=== PATIENT | female | born 1985 | race African-American/Black ===

== ENCOUNTER 2016-09-17 18:30 | Emergency (ER) | payer BC, MEDICAID ==
[2010-09-15 15:49] VITALS: BMI 24.4
[~2016-09-17 18:30] MED LIST: AMOXICILLIN500 M1 PO; TYLENOL W/CODEI1 TAB PO
[2016-09-17 19:41] LABS: BASOPHILS 0.4 % (0.0-2.0); EOSINOPHILS 1.2 % (0-7); HEMATOCRIT 39.8 % (36.0-48.0); LYMPHOCYTES 35.3 % (15-50); MCH 29.8 pg (26.0-34.0); MCHC 32.7 g/dL (31.0-37.0); MCV 91.3 fL (80.0-100.0); MONOCYTES 6.9 % (2-11); NEUTROPHILS 56.2 % (40-80); PLATELET COUNT 193 10x3/uL (130-400); RBC 4.36 10x6/uL (4.00-5.40); RDW 13.8 % (11.5-14.5); WBC 4.9 10x3/uL (4.8-10.8)
[2016-09-17 20:08] LABS: ALBUMIN 3.9 g/dL (3.4-5.0); ALKALINE PHOSPHATASE 96 U/L (46-116); ALT (SGPT) 23 U/L (10-68); BILIRUBIN - TOTAL 0.31 mg/dL (0.2-1.3); CALC OSMOLALITY 277 mosm/kg (275-300); CALCIUM 8.9 mg/dL (8.5-10.1); CARBON DIOXIDE 30.4 mmol/L (21.0-32.0); CHLORIDE - SERUM 103 mmol/L (98-107); CREATININE - SERUM 0.7 mg/dL (0.6-1.3); GLUCOSE 95 mg/dL (74-106); POTASSIUM - SERUM 3.5 mmol/L (3.5-5.1); PROTEIN - SERUM 7.2 g/dL (6.4-8.2); SODIUM 140 mmol/L (136-145); UREA NITROGEN 10 mg/dL (7-18); eGFR NON AFRICAN AMERICAN > 90 mL/min (90-120)
[2016-09-17 20:10] LABS: CREATINE KINASE 116 UL (21-215)
[2016-09-17 20:11] LABS: TROPONIN-I < 0.010 ng/mL (0.000-0.060)
== END 2016-09-17 22:00 | disposition home or self-care (01) ==
LOC: D.ER 18:30
PROVIDERS: Emergency Medicine
DX: T14.8 Other injury of unspecified body region (principal); X58.XXXA Exposure to other specified factors, initial encounter; Y93.89 Activity, other specified; Y92.019 Unspecified place in single-family (private) house as the place of occurrence of the external cause

== ENCOUNTER 2017-05-20 18:46 | Emergency (ER) | payer OTHER ==
[2010-09-15 15:49] VITALS: BMI 24.4
== END 2017-05-20 21:24 | disposition home or self-care (01) ==
LOC: D.ER 18:46
DX: S16.1XXA Strain of muscle, fascia and tendon at neck level, initial encounter (principal); V43.52XA Car driver injured in collision with other type car in traffic accident, initial encounter; Y93.89 Activity, other specified; Y92.410 Unspecified street and highway as the place of occurrence of the external cause; F17.200 Nicotine dependence, unspecified, uncomplicated

== ENCOUNTER 2017-05-24 14:04 | Emergency (ER) | payer OTHER ==
[2010-09-15 15:49] VITALS: BMI 24.4
== END 2017-05-24 16:22 | disposition home or self-care (01) ==
LOC: D.ER 14:04
DX: S16.1XXA Strain of muscle, fascia and tendon at neck level, initial encounter (principal); V89.2XXA Person injured in unspecified motor-vehicle accident, traffic, initial encounter; Y93.89 Activity, other specified; Y92.410 Unspecified street and highway as the place of occurrence of the external cause; R51 Headache

== ENCOUNTER 2017-11-08 11:05 | Emergency (ER) | payer OTHER ==
[2010-09-15 15:49] VITALS: BMI 24.4
[2017-11-08 11:45] LABS: APPEARANCE CLEAR (CLEAR); COLOR YELLOW (YELLOW)
[2017-11-08 11:46] LABS: BILIRUBIN NEGATIVE (NEGATIVE); GLUCOSE NEGATIVE (NEGATIVE); KETONE NEGATIVE (NEGATIVE); NITRITE NEGATIVE (NEGATIVE); PROTEIN NEGATIVE (NEGATIVE); UROBILINOGEN NORMAL (NORMAL)
[2017-11-08 11:48] LABS: HCG URINE NEGATIVE (NEGATIVE)
== END 2017-11-08 13:00 | disposition home or self-care (01) ==
LOC: D.ER 11:05
PROVIDERS: Family Medicine
DX: S16.1XXA Strain of muscle, fascia and tendon at neck level, initial encounter (principal); V43.52XA Car driver injured in collision with other type car in traffic accident, initial encounter; Y93.89 Activity, other specified; Y92.410 Unspecified street and highway as the place of occurrence of the external cause; S29.012A Strain of muscle and tendon of back wall of thorax, initial encounter

== ENCOUNTER 2017-11-26 23:42 | Emergency (ER) | payer OTHER ==
[2010-09-15 15:49] VITALS: BMI 24.4
[2017-11-27 00:37] LABS: BASOPHILS 0.3 % (0-2); EOSINOPHILS 0.7 % (0-7); HEMATOCRIT 42.3 % (36.0-48.0); HEMOGLOBIN 13.9 g/dL (12-16); IMMATURE GRANULOCYTES 0.2 % (0-5); LYMPHOCYTES 25.9 % (15-50); MCH 29.8 pg (26.0-34.0); MCHC 32.9 g/dL (31.0-37.0); MCV 90.6 fL (80.0-100.0); MEAN PLATELET VOLUME 10.5 fL (7.4-10.4); MONOCYTES 8.7 % (2-11); NEUTROPHILS 64.2 % (40-80); PLATELET COUNT 212 10x3/uL (130-400); RBC 4.67 10x6/uL (4.00-5.40); RDW 13.5 % (11.5-14.5); WBC 6.1 10x3/uL (4.8-10.8)
[2017-11-27 00:40] LABS: ALKALINE PHOSPHATASE 65 U/L (46-116); ALT (SGPT) 17 U/L (10-68); BILIRUBIN - TOTAL 0.74 mg/dL (0.2-1.3); CALC OSMOLALITY 271 mosm/kg (275-300); CALCIUM 8.7 mg/dL (8.5-10.1); CARBON DIOXIDE 27.2 mmol/L (21.0-32.0); CHLORIDE - SERUM 98 mmol/L (98-107); CREATININE - SERUM 0.8 mg/dL (0.6-1.3); GLUCOSE 87 mg/dL (74-106); POTASSIUM - SERUM 3.5 mmol/L (3.5-5.1); PROTEIN - SERUM 8.2 g/dL (6.4-8.2); SODIUM 137 mmol/L (136-145); UREA NITROGEN 9 mg/dL (7-18); eGFR NON AFRICAN AMERICAN 87 mL/min (90-120)
[2017-11-27 00:42] LABS: HCG SERUM POSITIVE (NEGATIVE)
[2017-11-27 01:04] LABS: HCG - QUANTITATIVE (MATERNAL) 40449 mIU/mL
== END 2017-11-27 02:19 | disposition home or self-care (01) ==
LOC: D.ER 23:42
PROVIDERS: Emergency Medicine
DX: O20.9 Hemorrhage in early pregnancy, unspecified (principal); Z3A.01 Less than 8 weeks gestation of pregnancy

== ENCOUNTER → 2018-02-23 10:40 | Outpatient (CLI) | payer OTHER ==
[2010-09-15 15:49] VITALS: BMI 24.4
== END | disposition home or self-care (01) ==
LOC: D.LDO 10:40
DX: O26.899 Other specified pregnancy related conditions, unspecified trimester (principal); Z3A.00 Weeks of gestation of pregnancy not specified

== ENCOUNTER → 2018-03-17 20:48 | Outpatient (CLI) | payer OTHER ==
[2010-09-15 15:49] VITALS: BMI 24.4
== END | disposition home or self-care (01) ==
LOC: D.LDO 20:48
DX: O36.8120 Decreased fetal movements, second trimester, not applicable or unspecified (principal); Z3A.21 21 weeks gestation of pregnancy

== ENCOUNTER → 2018-04-17 11:33 | Outpatient (CLI) | payer OTHER ==
[2010-09-15 15:49] VITALS: BMI 24.4
[2018-04-17 12:12] LABS: APPEARANCE CLEAR (CLEAR); BILIRUBIN NEGATIVE (NEGATIVE); COLOR STRAW (YELLOW); GLUCOSE NEGATIVE (NEGATIVE); KETONE NEGATIVE (NEGATIVE); NITRITE NEGATIVE (NEGATIVE); PROTEIN NEGATIVE (NEGATIVE); UROBILINOGEN NORMAL (NORMAL)
== END | disposition home or self-care (01) ==
LOC: D.LDO 11:33
PROVIDERS: Obstetrics & Gynecology
DX: O26.899 Other specified pregnancy related conditions, unspecified trimester (principal); Z3A.00 Weeks of gestation of pregnancy not specified

== ENCOUNTER → 2018-04-29 11:17 | Outpatient (CLI) | payer OTHER ==
[2010-09-15 15:49] VITALS: BMI 24.4
[2018-04-29 12:00] LABS: APPEARANCE CLOUDY (CLEAR); BILIRUBIN NEGATIVE (NEGATIVE); COLOR YELLOW (YELLOW); GLUCOSE NEGATIVE (NEGATIVE); KETONE NEGATIVE (NEGATIVE); NITRITE NEGATIVE (NEGATIVE); PROTEIN NEGATIVE (NEGATIVE); SPECIFIC GRAVITY 1.015 (1.005-1.020)
[2018-04-29 12:01] LABS: BACTERIA MODERATE /hpf (NONE SEEN); EPITHELIAL CELLS 0-5 /hpf (0-5); MUCUS <1+ /lpf (NONE SEEN); WHITE CELLS - URINE 25-50 /hpf (0-5)
== END | disposition home or self-care (01) ==
LOC: D.LABREF 11:17 → D.LDO 11:17
PROVIDERS: Obstetrics & Gynecology
DX: O26.892 Other specified pregnancy related conditions, second trimester (principal); Z3A.27 27 weeks gestation of pregnancy; R30.0 Dysuria

== ENCOUNTER 2018-05-16 23:09 | Emergency (ER) | payer OTHER ==
[~2018-05-16] VITALS: Ht 167.6 cm; Wt 86.2 kg
[2018-05-16 23:12] VITALS: Ht 167.6 cm; Wt 86.2 kg
[2018-05-17 01:02] VITALS: BP 123/79
== END 2018-05-17 01:03 | disposition home or self-care (01) ==
LOC: D.ER 23:09
DX: S61.011A Laceration without foreign body of right thumb without damage to nail, initial encounter (principal); S61.210A Laceration without foreign body of right index finger without damage to nail, initial encounter; W25.XXXA Contact with sharp glass, initial encounter; Y93.89 Activity, other specified; Y92.89 Other specified places as the place of occurrence of the external cause; O26.893 Other specified pregnancy related conditions, third trimester; Z3A.32 32 weeks gestation of pregnancy

== ENCOUNTER → 2018-06-15 22:10 | Outpatient (CLI) | payer OTHER ==
[2018-05-16 23:12] VITALS: BMI 24.4
[2018-06-15 22:59] LABS: APPEARANCE CLEAR (CLEAR); BILIRUBIN NEGATIVE (NEGATIVE); COLOR YELLOW (YELLOW); GLUCOSE NEGATIVE (NEGATIVE); KETONE NEGATIVE (NEGATIVE); NITRITE NEGATIVE (NEGATIVE); PROTEIN TRACE mg/dL (NEGATIVE); SPECIFIC GRAVITY 1.015 (1.005-1.020)
== END | disposition home or self-care (01) ==
LOC: D.LDO 22:10
PROVIDERS: Obstetrics & Gynecology
DX: O26.893 Other specified pregnancy related conditions, third trimester (principal); Z3A.34 34 weeks gestation of pregnancy

== ENCOUNTER 2018-07-07 23:33 | Outpatient (CLI) | payer MEDICAID ==
[2018-05-16 23:12] VITALS: BMI 24.4
[2018-07-08 00:38] LABS: APPEARANCE CLEAR (CLEAR); BILIRUBIN NEGATIVE (NEGATIVE); COLOR YELLOW (YELLOW); GLUCOSE NEGATIVE (NEGATIVE); KETONE NEGATIVE (NEGATIVE); NITRITE NEGATIVE (NEGATIVE); PROTEIN 1+ mg/dL (NEGATIVE); SPECIFIC GRAVITY 1.015 (1.005-1.020)
[2018-07-08 00:40] LABS: BACTERIA MODERATE /hpf (NONE SEEN); EPITHELIAL CELLS 0-5 /hpf (0-5); RED CELLS - URINE NONE SEEN /hpf (0-5); WHITE CELLS - URINE 0-5 /hpf (0-5)
[2018-07-08 01:47] LABS: BASOPHILS 0.3 % (0-2); EOSINOPHILS 5.3 % (0-7); HEMATOCRIT 35.1 % (36.0-48.0); HEMOGLOBIN 11.2 g/dL (12-16); IMMATURE GRANULOCYTES 0.3 % (0-5); LYMPHOCYTES 29.1 % (15-50); MCH 26.4 pg (26.0-34.0); MCHC 31.9 g/dL (31.0-37.0); MCV 82.8 fL (80.0-100.0); MEAN PLATELET VOLUME 10.6 fL (7.4-10.4); MONOCYTES 10.1 % (2-11); NEUTROPHILS 54.9 % (40-80); RBC 4.24 10x6/uL (4.00-5.40); RDW 14.5 % (11.5-14.5); WBC 3.8 10x3/uL (4.8-10.8)
[2018-07-08 01:50] LABS: PLATELET COUNT 144 10x3/uL (130-400)
[2018-07-08 01:57] LABS: INR 1.01 (0.85-1.17)
[2018-07-08 02:04] LABS: ALBUMIN 2.4 g/dL (3.4-5.0); ALKALINE PHOSPHATASE 177 U/L (46-116); ALT (SGPT) 17 U/L (10-68); BILIRUBIN - DIRECT 0.16 mg/dL (0.00-0.30); BILIRUBIN - INDIRECT 0.59 mg/dL (0.00-1.00); BILIRUBIN - TOTAL 0.75 mg/dL (0.2-1.3); CALC OSMOLALITY 273 mosm/kg (275-300); CALCIUM 7.9 mg/dL (8.5-10.1); CARBON DIOXIDE 25.7 mmol/L (21.0-32.0); CHLORIDE - SERUM 105 mmol/L (98-107); CREATININE - SERUM 0.5 mg/dL (0.6-1.3); GLUCOSE 89 mg/dL (74-106); POTASSIUM - SERUM 3.2 mmol/L (3.5-5.1); PROTEIN - SERUM 6.2 g/dL (6.4-8.2); SODIUM 138 mmol/L (136-145); UREA NITROGEN 9 mg/dL (7-18); URIC ACID 2.8 mg/dL (2.6-7.2); eGFR NON AFRICAN AMERICAN > 90 mL/min (90-120)
[2018-07-13 03:23] VITALS: BMI 32.0
== END 2018-07-08 06:15 | disposition home or self-care (01) ==
LOC: D.LD 23:33 → D.LDO 23:33
PROVIDERS: Obstetrics & Gynecology
DX: O26.893 Other specified pregnancy related conditions, third trimester (principal); Z3A.38 38 weeks gestation of pregnancy

== ENCOUNTER → 2018-07-08 14:31 | Outpatient (CLI) | payer MEDICAID ==
[2018-05-16 23:12] VITALS: BMI 24.4
[~2018-07-08 14:31] MED LIST changes: +IBUPROFEN600 MG PO; +NORCO 10-325 TA1 TAB PO
[2018-07-08 15:25] LABS: BASOPHILS 0.3 % (0-2); EOSINOPHILS 4.1 % (0-7); HEMATOCRIT 32.9 % (36.0-48.0); HEMOGLOBIN 10.5 g/dL (12-16); IMMATURE GRANULOCYTES 0.3 % (0-5); LYMPHOCYTES 32.7 % (15-50); MCH 26.5 pg (26.0-34.0); MCHC 31.9 g/dL (31.0-37.0); MCV 83.1 fL (80.0-100.0); MEAN PLATELET VOLUME 10.4 fL (7.4-10.4); MONOCYTES 12.6 % (2-11); PLATELET COUNT 150 10x3/uL (130-400); RBC 3.96 10x6/uL (4.00-5.40); RDW 14.6 % (11.5-14.5); WBC 3.9 10x3/uL (4.8-10.8)
[2018-07-08 15:40] LABS: APPEARANCE CLEAR (CLEAR); BILIRUBIN NEGATIVE (NEGATIVE); COLOR YELLOW (YELLOW); GLUCOSE NEGATIVE (NEGATIVE); KETONE NEGATIVE (NEGATIVE); NITRITE NEGATIVE (NEGATIVE); PROTEIN NEGATIVE (NEGATIVE); SPECIFIC GRAVITY 1.005 (1.005-1.020); UROBILINOGEN NORMAL (NORMAL)
[2018-07-08 15:42] LABS: ALBUMIN 2.3 g/dL (3.4-5.0); ALKALINE PHOSPHATASE 175 U/L (46-116); ALT (SGPT) 17 U/L (10-68); BILIRUBIN - TOTAL 0.71 mg/dL (0.2-1.3); CALC OSMOLALITY 269 mosm/kg (275-300); CALCIUM 7.4 mg/dL (8.5-10.1); CARBON DIOXIDE 21.1 mmol/L (21.0-32.0); CHLORIDE - SERUM 105 mmol/L (98-107); CREATININE - SERUM 0.6 mg/dL (0.6-1.3); GLUCOSE 81 mg/dL (74-106); POTASSIUM - SERUM 3.2 mmol/L (3.5-5.1); PROTEIN - SERUM 5.8 g/dL (6.4-8.2); SODIUM 137 mmol/L (136-145); eGFR NON AFRICAN AMERICAN > 90 mL/min (90-120)
[2018-07-08 15:42] LABS: BACTERIA MODERATE /hpf (NONE SEEN); RED CELLS - URINE 0-5 /hpf (0-5); WHITE CELLS - URINE 0-5 /hpf (0-5)
[2018-07-08 15:43] LABS: BILIRUBIN - INDIRECT 0.51 mg/dL (0.00-1.00); UREA NITROGEN 5 mg/dL (7-18); URIC ACID 2.9 mg/dL (2.6-7.2)
[2018-07-13 03:23] VITALS: BMI 32.0
== END | disposition home or self-care (01) ==
LOC: D.LDO 14:31
PROVIDERS: Obstetrics & Gynecology
DX: O26.899 Other specified pregnancy related conditions, unspecified trimester (principal); Z3A.00 Weeks of gestation of pregnancy not specified

== ENCOUNTER → 2018-07-10 12:01 | Outpatient (CLI) | payer MEDICAID ==
[2018-05-16 23:12] VITALS: BMI 24.4
[2018-07-13 03:23] VITALS: BMI 32.0
== END | disposition home or self-care (01) ==
LOC: D.LDO 12:01
DX: O16.3 Unspecified maternal hypertension, third trimester (principal); Z3A.38 38 weeks gestation of pregnancy

== ENCOUNTER 2018-07-12 23:17 | Inpatient (IN) | payer MEDICAID ==
[~2018-07-12] VITALS: Ht 167.6 cm; Wt 90.0 kg
[~2018-07-12 23:17] MED LIST changes: -IBUPROFEN600 MG PO; -NORCO 10-325 TA1 TAB PO
[2018-07-12 23:54] LABS: APPEARANCE CLEAR (CLEAR); BILIRUBIN NEGATIVE (NEGATIVE); COLOR YELLOW (YELLOW); GLUCOSE NEGATIVE (NEGATIVE); KETONE NEGATIVE (NEGATIVE); NITRITE NEGATIVE (NEGATIVE); PROTEIN NEGATIVE (NEGATIVE); UROBILINOGEN NORMAL (NORMAL)
[2018-07-13] VITALS (18 sets, daily range): BP systolic 100–174; BP diastolic 59–100; Ht 167.6 cm; Wt 90.0 kg
[2018-07-13 00:30] LABS: HEMOGLOBIN 10.7 g/dL (12-16); MCH 26.2 pg (26.0-34.0); MCHC 32.4 g/dL (31.0-37.0); MCV 80.9 fL (80.0-100.0); MEAN PLATELET VOLUME 10.9 fL (7.4-10.4); RBC 4.08 10x6/uL (4.00-5.40); RDW 14.5 % (11.5-14.5); WBC 4.2 10x3/uL (4.8-10.8)
[2018-07-13 10:30] LABS: BASOPHILS 0.1 % (0-2); EOSINOPHILS 1.9 % (0-7); HEMATOCRIT 36.9 % (36.0-48.0); IMMATURE GRANULOCYTES 0.1 % (0-5); LYMPHOCYTES 15.4 % (15-50); MCH 26.8 pg (26.0-34.0); MCHC 32.5 g/dL (31.0-37.0); MCV 82.4 fL (80.0-100.0); MEAN PLATELET VOLUME 10.6 fL (7.4-10.4); MONOCYTES 8.7 % (2-11); NEUTROPHILS 73.8 % (40-80); RBC 4.48 10x6/uL (4.00-5.40); RDW 14.7 % (11.5-14.5)
[2018-07-13 10:35] LABS: PLATELET COUNT 116 10x3/uL (130-400); WBC 7.3 10x3/uL (4.8-10.8)
[2018-07-13 15:25] LABS: BASOPHILS 0.3 % (0-2); EOSINOPHILS 1.6 % (0-7); HEMATOCRIT 36.4 % (36.0-48.0); HEMOGLOBIN 11.8 g/dL (12-16); IMMATURE GRANULOCYTES 0.1 % (0-5); LYMPHOCYTES 15.8 % (15-50); MCH 26.9 pg (26.0-34.0); MCHC 32.4 g/dL (31.0-37.0); MCV 83.1 fL (80.0-100.0); MONOCYTES 7.7 % (2-11); NEUTROPHILS 74.5 % (40-80); PLATELET COUNT 122 10x3/uL (130-400); RBC 4.38 10x6/uL (4.00-5.40); RDW 14.8 % (11.5-14.5)
[2018-07-14 00:23] VITALS: BP 129/88
[2018-07-14 04:46] VITALS: BP 158/89
[2018-07-14 06:12] LABS: RAPID PLASMA REAGIN Non Reactive (Non Reactive)
[2018-07-14 07:14] VITALS: BP 126/84
[2018-07-14 20:40] VITALS: BP 131/82
[2018-07-15 09:34] VITALS: BP 119/81
[2018-07-15 12:38] VITALS: BP 131/89
[2018-07-15] MEDS ORDERED: NORCO 10-325 TA1 TAB PO (14:39)
[2018-07-15] MEDS ORDERED: IBUPROFEN600 MG PO (14:40)
== END 2018-07-15 16:00 | disposition home or self-care (01) | DRG 786 ==
LOC: D.LDO 23:17 → D.LD 23:18 → D.LDO 07-13 00:05 → D.LD 07-13 00:06
PROVIDERS: Obstetrics & Gynecology
PROC: 10D00Z1 Extraction of Products of Conception, Low, Open Approach (ICD-10-PCS; principal; 2018-07-13 01:00)
DX: O76 Abnormality in fetal heart rate and rhythm complicating labor and delivery (principal); O71.1 Rupture of uterus during labor; Z3A.38 38 weeks gestation of pregnancy; Z37.0 Single live birth

== ENCOUNTER → 2018-10-07 14:36 | Outpatient (CLI) | payer MEDICAID ==
[2018-07-13 03:23] VITALS: BMI 32.0
[~2018-10-07 14:36] MED LIST changes: +IBUPROFEN600 MG PO; +NORCO 10-325 TA1 TAB PO
== END | disposition home or self-care (01) ==
LOC: D.MRI 14:36
DX: K46.9 Unspecified abdominal hernia without obstruction or gangrene (principal); R10.2 Pelvic and perineal pain

== ENCOUNTER 2019-01-15 07:00 | Day surgery (SDC) | payer MEDICAID ==
[2019-01-14 10:07] LABS: BASOPHILS 0.2 % (0-2); EOSINOPHILS 1.8 % (0-7); HEMOGLOBIN 14.3 g/dL (12-16); LYMPHOCYTES 22.6 % (15-50); MCH 30.2 pg (26.0-34.0); MCV 88.6 fL (80.0-100.0); MEAN PLATELET VOLUME 10.6 fL (7.4-10.4); MONOCYTES 5.7 % (2-11); NEUTROPHILS 69.7 % (40-80); PLATELET COUNT 213 10x3/uL (130-400); RBC 4.74 10x6/uL (4.00-5.40); RDW 13.2 % (11.5-14.5); WBC 5.1 10x3/uL (4.8-10.8)
[~2019-01-15] VITALS: Ht 167.6 cm; Wt 90.7 kg
[~2019-01-15 07:00] MED LIST changes: +GABAPENTIN100 MG PO; +PROCARDIA10 MG PO
[2019-01-15 07:20] LABS: HCG URINE NEGATIVE (NEGATIVE)
[2019-01-15 07:27] VITALS: BP 102/78; Ht 167.6 cm; Wt 90.7 kg
--- NOTE | 2019-01-15 11:55 | NUR ---
REC'D FROM RR. FAMILY AT BEDSIDE. DROWSY. ICE CHIPS BROUGHT TO PATIENT. DRESSING CDI TO SURGICAL SITES.
--- NOTE | 2019-01-15 12:25 | NUR ---
DROWSY. RESPONDS TO VERBAL STIMULI. CONTINUES TO EAT ICE CHIPS.
--- NOTE | 2019-01-15 12:48 | NUR ---
FL TRAY TAKEN TO PT.
--- NOTE | 2019-01-15 12:51 | NUR ---
CALLED AND MESSAGE LEFT FOR DR NICOLE.
--- NOTE | 2019-01-15 13:30 | NUR ---
TOLERATED FL DIET. IV DC'D WITH CATHETER INTACT. AMBULATED TO BATHROOM AND VOIDED WITHOUT DIFFICULTY.
--- NOTE | 2019-01-15 14:00 | NUR ---
WRITTEN AND VERBAL DISCHARGE INSTRUCTIONS GIVEN TO PT ALONG WITH RX. VERBALIZED UNDERSTANDING.
--- NOTE | 2019-01-15 14:05 | NUR ---
DC'D HOME WITH FAMILY VIA PRIVATE VEHICLE. TAKEN TO VEHICLE VIA WC. STABLE AT TIME OF DC.
== END 2019-01-15 14:05 | disposition home or self-care (01) ==
LOC: D.OPS 07:00
PROVIDERS: ATTEND Obstetrics & Gynecology
DX: R10.2 Pelvic and perineal pain (principal); Z01.812 Encounter for preprocedural laboratory examination

== ENCOUNTER 2019-01-19 20:38 | Emergency (ER) | payer MEDICAID ==
[~2019-01-19] VITALS: Ht 167.6 cm; Wt 93.2 kg
[2019-01-19 20:51] VITALS: Ht 167.6 cm; Wt 93.2 kg
[2019-01-19 23:48] LABS: BASOPHILS 0.4 % (0-2); EOSINOPHILS 2.3 % (0-7); HEMATOCRIT 38.4 % (36.0-48.0); HEMOGLOBIN 12.8 g/dL (12-16); IMMATURE GRANULOCYTES 0.2 % (0-5); LYMPHOCYTES 41.9 % (15-50); MCH 29.6 pg (26.0-34.0); MCHC 33.3 g/dL (31.0-37.0); MCV 88.7 fL (80.0-100.0); MEAN PLATELET VOLUME 10.6 fL (7.4-10.4); MONOCYTES 6.6 % (2-11); NEUTROPHILS 48.6 % (40-80); PLATELET COUNT 204 10x3/uL (130-400); RBC 4.33 10x6/uL (4.00-5.40); RDW 12.9 % (11.5-14.5); WBC 4.8 10x3/uL (4.8-10.8)
[2019-01-19 23:57] LABS: APPEARANCE HAZY (CLEAR); BILIRUBIN NEGATIVE (NEGATIVE); COLOR YELLOW (YELLOW); GLUCOSE NEGATIVE (NEGATIVE); KETONE NEGATIVE (NEGATIVE); NITRITE NEGATIVE (NEGATIVE); PH 7.5 (5.0-6.0); PROTEIN NEGATIVE (NEGATIVE); UROBILINOGEN NORMAL (NORMAL)
[2019-01-20 00:01] LABS: ALBUMIN 3.7 g/dL (3.4-5.0); ALKALINE PHOSPHATASE 86 U/L (46-116); ALT (SGPT) 30 U/L (10-68); BILIRUBIN - TOTAL 0.39 mg/dL (0.2-1.3); CALC OSMOLALITY 281 mosm/kg (275-300); CALCIUM 8.8 mg/dL (8.5-10.1); CARBON DIOXIDE 29.2 mmol/L (21.0-32.0); CHLORIDE - SERUM 104 mmol/L (98-107); CREATININE - SERUM 1.4 mg/dL (0.6-1.3); GLUCOSE 93 mg/dL (74-106); POTASSIUM - SERUM 3.7 mmol/L (3.5-5.1); PROTEIN - SERUM 7.5 g/dL (6.4-8.2); SODIUM 141 mmol/L (136-145); UREA NITROGEN 14 mg/dL (7-18); eGFR NON AFRICAN AMERICAN 46 mL/min (90-120)
[2019-01-20 00:05] LABS: BACTERIA FEW /hpf (NONE SEEN); EPITHELIAL CELLS RARE /hpf (0-5); RED CELLS - URINE 0-5 /hpf (0-5); WHITE CELLS - URINE OCC /hpf (0-5)
[2019-01-20 00:16] LABS: AMYLASE - SERUM 55 U/L (25-115); CKMB 1.4 U/L (0.0-3.6); CREATINE KINASE 112 UL (21-215); LIPASE 157 U/L (73-393); TROPONIN-I < 0.017 ng/mL (0.000-0.060)
[2019-01-20 00:51] VITALS: BP 114/84
== END 2019-01-20 02:15 | disposition home or self-care (01) ==
LOC: D.ER 20:38
PROVIDERS: Family Medicine
DX: R07.9 Chest pain, unspecified (principal)

== ENCOUNTER 2019-01-25 09:20 | Emergency (ER) | payer MEDICAID ==
[2019-01-25 09:23] VITALS: BP 107/71; BMI 33.1
[2019-01-25] MEDS ORDERED: HYDROCODON-ACE1 EAC7 PO (09:28)
[2019-01-25] MEDS ORDERED: CLEOCIN HCL150 MG PO (09:45)
== END 2019-01-25 10:15 | disposition home or self-care (01) ==
LOC: D.ER 09:20
DX: L76.82 Other postprocedural complications of skin and subcutaneous tissue (principal)

== ENCOUNTER 2019-02-22 10:42 | Inpatient (IN) | payer MEDICAID ==
[~2019-02-22] VITALS: Ht 167.6 cm; Wt 81.8 kg
[~2019-02-22 10:42] MED LIST changes: +CLEOCIN HCL150 MG PO; +HYDROCODON-ACE1 EAC7 PO
[2019-03-10 15:01] LABS: BASOPHILS 0.2 % (0-2); EOSINOPHILS 3.6 % (0-7); HEMATOCRIT 41.2 % (36.0-48.0); HEMOGLOBIN 14.1 g/dL (12-16); IMMATURE GRANULOCYTES 0.2 % (0-5); LYMPHOCYTES 39.8 % (15-50); MCHC 34.2 g/dL (31.0-37.0); MCV 87.7 fL (80.0-100.0); MONOCYTES 8.9 % (2-11); NEUTROPHILS 47.3 % (40-80); PLATELET COUNT 220 10x3/uL (130-400); RDW 13.2 % (11.5-14.5)
[2019-03-12] VITALS (10 sets, daily range): BP systolic 90–110; BP diastolic 50–72; Ht 167.6 cm; Wt 81.8 kg
[2019-03-12 06:38] LABS: HCG URINE NEGATIVE (NEGATIVE)
--- NOTE | 2019-03-12 14:59 | NUR ---
PATIENT RECIEVED FROM RECOVERY ROOM POST EXP LAP. DRESSING TO LOWER ABDOMEN CLEAN, DRY AND INTACT. PATIENT AROUSES BY VOICE AND REPORTS PAIN OF 10 WHEN AWAKEND. TORADOL 30 MG IV GIVEN AND OPTOMETRY ASSISTANT DILAUDID GIVEN. EDUCATED PATIENT ON USE OF OPTOMETRY ASSISTANT WITH PATIENT VOICING UNDERSTANDING. CL IN EASY.
--- NOTE | 2019-03-12 17:03 | NUR ---
PATIENT RESTING QUIETLY, TOLERATING PAIN AND CL DIET
--- NOTE | 2019-03-12 19:30 | NUR ---
RECEIVED REPORT, WILL ASSUME CARE OF PT, DENIES ANY NEEDS AT THIS TIME, BED IS LOW, SRX2, CALL LIGHT IN REACH, FAMILY AT BEDSIDE,WILL CONTINUE PLAN OF CARE
--- NOTE | 2019-03-12 23:44 | NUR ---
GAVE PT SOME MILLIE
--- NOTE | 2019-03-13 03:04 | NUR ---
I have reviewed this patient and I concur with the Shift Assessment completed by the Licensed Practical Nurse today this shift.
[2019-03-13 04:21] VITALS: BP 96/58
[2019-03-13 06:42] LABS: BASOPHILS 0.2 % (0-2); EOSINOPHILS 2.5 % (0-7); HEMATOCRIT 34.7 % (36.0-48.0); HEMOGLOBIN 11.2 g/dL (12-16); IMMATURE GRANULOCYTES 0.2 % (0-5); LYMPHOCYTES 25.7 % (15-50); MCH 28.9 pg (26.0-34.0); MCHC 32.3 g/dL (31.0-37.0); MCV 89.4 fL (80.0-100.0); MEAN PLATELET VOLUME 10.9 fL (7.4-10.4); MONOCYTES 8.6 % (2-11); NEUTROPHILS 62.8 % (40-80); PLATELET COUNT 181 10x3/uL (130-400); RBC 3.88 10x6/uL (4.00-5.40); RDW 13.6 % (11.5-14.5); WBC 5.7 10x3/uL (4.8-10.8)
[2019-03-13 07:00] VITALS: BP 110/70
[2019-03-13 07:00] LABS: CALC OSMOLALITY 273 mosm/kg (275-300); CALCIUM 7.8 mg/dL (8.5-10.1); CARBON DIOXIDE 28.2 mmol/L (21.0-32.0); CHLORIDE - SERUM 105 mmol/L (98-107); CREATININE - SERUM 0.6 mg/dL (0.6-1.3); GLUCOSE 105 mg/dL (74-106); POTASSIUM - SERUM 3.9 mmol/L (3.5-5.1); SODIUM 138 mmol/L (136-145); UREA NITROGEN 8 mg/dL (7-18); eGFR NON AFRICAN AMERICAN > 90 mL/min (90-120)
--- NOTE | 2019-03-13 07:10 | NUR ---
REPORT RECEIVED FROM MULTIPLE DRUM SANDER AND PATIENT CARE ASSUMED. PATIENT LAYING IN BED ON BACK WITH EYES CLOSED AND BREATHING EVENLY. FAMILY MEMBER ASLEEP IN BS CHAIR. WILL CONTINUE WITH PLAN OF CARE. SR UP X 2 BED IN LOW POSITION AND CALL LIGHT IN REACH.
--- NOTE | 2019-03-13 08:30 | NUR ---
DR NICOLE IN ROOM. NEW ORDERS RECIEVED.
[2019-03-13 11:00] VITALS: BP 118/68
--- NOTE | 2019-03-13 13:30 | NUR ---
PATIENT IS STABLE AND VSS. PATIENT IS SORE IN ABD BUT STATES SHE FEELS BETTER. PATIENT UP TO SHOWER. APPLIED LOTION TO BODY. COMPLETE LINEN CHANGE. PATIENT TOLERATED WELL AND IS NOW SITTING UP IN BS CHAIR. WILL CONTINUE TO MONITOR.
[2019-03-13 16:00] VITALS: BP 107/64
--- NOTE | 2019-03-13 17:38 | NUR ---
PATIENT RESTING COMFORTABLY. VSS AND PATIENT IS STABLE. WILL CONTINUE TO MONITOR.
--- NOTE | 2019-03-13 19:15 | NUR ---
PT ALERT AND ORIENTED. ABDOMINAL INCISION TO THE LOWER ABDOMEN IN PELVIC FOLD. PATIENT STATES THAT PAIN IS 6/10. HAS DILAUDID EMERGENCY ROOM TECHNICIAN AND VERBALIZES HOW TO USE EFFECTIVELY. RIGHT HAND IV THE IS INFUSING LR @ 125. LEFT HAND THAT IS CURRENTLY SALINE LOCKED. DAUGHTER IN ROOM. SCD'S ON PER ORDER. INCENTIVE SPRIOMETER AT BEDSIDE. HIGHLY ENCOURAGED PATIENT TO USE. EDUCATED ON BENEFITS OF TCDB AND SPLINTING PILLOW TO HELP WITH ABDOMINAL DISCOMFORT. PATIENT VERBALIZES UNDERSTANDING OF TEACHING. CALL LIGHT IN REACH OF PATIENT. EMERGENCY ROOM TECHNICIAN REMOTE IN REACH OF PATIENT. BED IS LOCKED AND LOWERED. SIDE RAILS UP X 2. CPOC.
[2019-03-13 20:00] VITALS: BP 107/64
[2019-03-14] VITALS: BP 100/65
--- NOTE | 2019-03-14 01:28 | NUR ---
I have reviewed this patient and I concur with the Shift Assessment completed by the Licensed Practical Nurse today this shift.
[2019-03-14 04:00] VITALS: BP 97/61
--- NOTE | 2019-03-14 11:50 | NUR ---
PATIENT UP TO SHOWER AND NOW AMBULATING IN MEDEL. PATIENT TOLERATING WELL. NEW OR VARSHA TO DC DILAUDED AIRCRAFT QUALITY CONTROL INSPECTOR. WILL CONTINUE TO MONITOR.
--- NOTE | 2019-03-14 15:25 | NUR ---
PATIENT IS STABLE AND VSS. PATIENT RESTING QUIETLY IN BED WITH SPOUSE IN BS CHAIR. PATIENT DENIES ANY NEEDS OR PAIN. WILL CONTINUE TO MONITOR.
[2019-03-14 15:31] VITALS: BP 98/68
[2019-03-14 19:44] VITALS: BP 118/65
--- NOTE | 2019-03-14 19:50 | NUR ---
PATIENT RECEIVED SITTING UP IN BED. ASSESSMENT & VITAL SIGNS DONE. NO C/O PAIN OR DISTRESS. BED LOW. CALL LIGHT WITHIN REACH. WILL CONTINUE TO MONITOR.
[2019-03-14 23:57] VITALS: BP 110/78
--- NOTE | 2019-03-15 00:36 | NUR ---
PATIENT AWAKE ON PHONE. IV LR CONTINUES AT 125CC/HR. NO C/O PAIN OR DISTRESS AT THIS TIME. CALL LIGHT WITHIN REACH. WILL CONTINUE TO MONITOR.
[2019-03-15 04:21] VITALS: BP 113/79
[2019-03-15 07:55] VITALS: BP 108/72
--- NOTE | 2019-03-15 08:22 | NUR ---
PT RESTING IN BED, SHIFT ASSESSMENT PERFORMED. DENIES ANY NEEDS AT THIS TIME. WILL CONT TO FOLLOW POC
[2019-03-15 11:43] VITALS: BP 106/73
--- NOTE | 2019-03-15 18:02 | NUR ---
ROUNDED AND TOLD NURSE PT WAS OK TO D/C. PIVS TO BILATERAL HANDS D/C WITH CATHETER TIP INTACT.
--- NOTE | 2019-03-15 19:13 | NUR ---
DISCHARGE INSTRUCTIONS REVIEWED WITH PT AND ALL QUESTIONS ANSWERED. ASSISTED PT TO FRONT OF HOSPITAL VIA WHEELCHAIR WHERE SHE LEFT WITH SPOUSE
--- NOTE | 2019-04-07 11:40 | OP ---
PATIENT NAME: FELIPE ZAVALA MEDICAL RECORD: [id number] :83 LOCATION:D.M3 D.1211 ADMISSION DATE:03/12/19 SURGEON: GRACIELA PATRICK MD DATE OF OPERATION: 03/12/2019 PREOPERATIVE DIAGNOSES: 1. Extensive adhesive disease of the pelvis. 2. Levorotation of the uterus due to adhesive disease. 2. Pelvic pain. PROCEDURES: Exploratory laparotomy and lysis of adhesions. SURGEON: Graciela Patrick MD ESTIMATED BLOOD LOSS: Approximately 50 cc. INTRAVENOUS FLUIDS: Per anesthesia record. ANESTHESIA: General endotracheal. SPECIMENS: None. COMPLICATIONS: None apparent. FINDINGS: 1. Extensive adhesive disease involving bladder, uterus, and anterior abdominal wall. 2. Levorotation of the uterus and bilateral adnexa. PROCEDURE IN DETAIL: The patient was taken to the operating room, where general anesthesia was achieved without any difficulty. The patient was then prepped and draped in normal sterile fashion in the dorsal supine position. A Mcelroy catheter had been placed and was draining freely. SCDs were on and functioning appropriately. Following prep and drape, a Pfannenstiel skin incision was made and extended downward to the underlying subcutaneous fat to level of the fascia. The fascia was then excised in the midline and carefully dissected bilaterally, revealing the underlying rectus muscle. Superior and inferior aspects of the fascial incision were then grasped with Haley clamps times 2, tented upward, and sharply dissected from the underlying rectus muscle using the Bautista scissors and the Bovie cautery. The peritoneum was entered at the superior aspect of the incision with Metzenbaum scissors. Under direct visualization, further peritoneal dissection was performed downward, at which plane there was found a portion of the bladder that was densely adherent to the peritoneum and the rectus muscles. Careful dissection was performed downward until the rectus muscle was exposed. The bladder was then carefully dissected away from the peritoneum and right side of the rectus muscle. Several fibrous bands were noted connecting the bladder and the uterus to the abdominal wall. These were examined and carefully excised. Following removal of several of these bands, the bladder, uterus, and adnexa began to similar to normal anatomic position. Several other areas of the anterior uterus were carefully dissected from the peritoneal surface to relieve lines of tension. Good hemostasis was noted from the surgical sites. Interceed was placed across all the surgical areas anteriorly and on the fundus of the uterus to prevent further adhesion formation. Counts were correct times 2 and the fascia was repaired with #0 loop PDS times 1 and the skin was repaired with a running subcutaneous stitch using OPERATIVE REPORT [id number] FELIPE ZAVALA 3-0 Monocryl and Dermabond. The patient tolerated the procedure well. She was transferred to postanesthesia recovery stable without incident. TRANSINT:[id number] Voice Confirmation ID: [id number] DOCUMENT ID: [id number] GRACILEA PATRICK MD at 1140 CC: [id number] DICTATION DATE: 03/21/19 1645 MOLD CLOSER HELPER: 03/21/192011 DIS IN 03/15/19 [facility] [address] [place] [address]
== END 2019-03-15 20:15 | disposition home or self-care (01) | DRG 745 ==
LOC: D.SDCHOLD 03-12 06:09 → D.M3 03-12 06:09 → D.SDCHOLD 03-12 07:30 → D.M3 03-12 12:43
PROVIDERS: ADMIT Obstetrics & Gynecology; ATTEND Obstetrics & Gynecology
PROC: 0TNB0ZZ Release Bladder, Open Approach (ICD-10-PCS; 2019-03-12)
PROC: 0UN90ZZ Release Uterus, Open Approach (ICD-10-PCS; principal; 2019-03-12 07:30)
DX: N73.6 Female pelvic peritoneal adhesions (postinfective) (principal); R10.2 Pelvic and perineal pain; I10 Essential (primary) hypertension; Z87.891 Personal history of nicotine dependence; F41.9 Anxiety disorder, unspecified; N32.89 Other specified disorders of bladder

== ENCOUNTER → 2019-05-04 13:58 | Outpatient (CLI) | payer MEDICAID ==
[2019-03-12 14:51] VITALS: BMI 29.1
== END | disposition home or self-care (01) ==
LOC: D.CT 13:58
PROVIDERS: ATTEND Obstetrics & Gynecology
DX: R10.9 Unspecified abdominal pain (principal)

== ENCOUNTER 2019-07-05 22:05 | Observation (INO) | payer MEDICAID ==
[~2019-07-05] VITALS: Ht 167.6 cm; Wt 44.6 kg
[2019-07-05 23:29] LABS: APPEARANCE CLEAR (CLEAR); BILIRUBIN NEGATIVE (NEGATIVE); COLOR YELLOW (YELLOW); GLUCOSE NEGATIVE (NEGATIVE); HCG URINE NEGATIVE (NEGATIVE); KETONE NEGATIVE (NEGATIVE); NITRITE NEGATIVE (NEGATIVE); PROTEIN TRACE mg/dL (NEGATIVE); SPECIFIC GRAVITY 1.015 (1.005-1.020); UROBILINOGEN NORMAL (NORMAL)
[2019-07-05 23:38] LABS: HEMATOCRIT 37.9 % (36.0-48.0); HEMOGLOBIN 12.7 g/dL (12-16); LYMPHOCYTES 38.7 % (15-50); MCHC 33.5 g/dL (31.0-37.0); MCV 89.4 fL (80.0-100.0); MEAN PLATELET VOLUME 10.1 fL (7.4-10.4); NEUTROPHILS 54.3 % (40-80); PLATELET COUNT 196 10x3/uL (130-400); RBC 4.24 10x6/uL (4.00-5.40); RDW 13.6 % (11.5-14.5); WBC 5.4 10x3/uL (4.8-10.8)
[2019-07-05 23:47] LABS: CALC OSMOLALITY 275 mosm/kg (275-300); CALCIUM 8.7 mg/dL (8.5-10.1); CARBON DIOXIDE 26.5 mmol/L (21.0-32.0); CHLORIDE - SERUM 103 mmol/L (98-107); CREATININE - SERUM 0.8 mg/dL (0.6-1.3); GLUCOSE 83 mg/dL (74-106); POTASSIUM - SERUM 3.9 mmol/L (3.5-5.1); SODIUM 139 mmol/L (136-145); UREA NITROGEN 11 mg/dL (7-18); eGFR NON AFRICAN AMERICAN 87 mL/min (90-120)
[2019-07-06 00:01] LABS: ALBUMIN 3.2 g/dL (3.4-5.0); ALKALINE PHOSPHATASE 74 U/L (46-116); ALT (SGPT) 38 U/L (10-68); BILIRUBIN - TOTAL 0.24 mg/dL (0.2-1.3); CKMB 7.4 U/L (0.0-3.6); CREATINE KINASE 548 UL (21-215); TROPONIN-I < 0.017 ng/mL (0.000-0.060)
[2019-07-06] MEDS ORDERED: HYDROCODON-ACE1 EAC7 PO (01:34)
[2019-07-06 01:47] VITALS: BP 128/80; BMI 15.8
[2019-07-06 05:38] VITALS: BP 105/65
[2019-07-06 05:51] LABS: BASOPHILS 0.3 % (0-2); EOSINOPHILS 2.7 % (0-7); HEMATOCRIT 37.2 % (36.0-48.0); IMMATURE GRANULOCYTES 0.2 % (0-5); LYMPHOCYTES 47.8 % (15-50); MCH 29.3 pg (26.0-34.0); MCHC 32.3 g/dL (31.0-37.0); MEAN PLATELET VOLUME 10.5 fL (7.4-10.4); MONOCYTES 7.5 % (2-11); NEUTROPHILS 41.5 % (40-80); PLATELET COUNT 225 10x3/uL (130-400); RBC 4.09 10x6/uL (4.00-5.40); RDW 13.9 % (11.5-14.5); WBC 5.9 10x3/uL (4.8-10.8)
[2019-07-06 06:03] LABS: APTT 33.7 SECONDS (22.8-39.4); INR 1.05 (0.85-1.17); PROTIME 13.2 SECONDS (11.6-15.0)
[2019-07-06 06:21] LABS: CALC OSMOLALITY 279 mosm/kg (275-300); CALCIUM 8.4 mg/dL (8.5-10.1); CARBON DIOXIDE 25.5 mmol/L (21.0-32.0); CHLORIDE - SERUM 106 mmol/L (98-107); CKMB 5.1 U/L (0.0-3.6); CREATININE - SERUM 0.7 mg/dL (0.6-1.3); GLUCOSE 123 mg/dL (74-106); MAGNESIUM - SERUM 1.9 mg/dL (1.8-2.4); PHOSPHOROUS 3.6 mg/dL (2.5-4.9); POTASSIUM - SERUM 3.5 mmol/L (3.5-5.1); SODIUM 140 mmol/L (136-145); UREA NITROGEN 12 mg/dL (7-18); eGFR NON AFRICAN AMERICAN > 90 mL/min (90-120)
[2019-07-06 06:26] LABS: CREATINE KINASE 373 UL (21-215)
--- NOTE | 2019-07-06 07:40 | NUR ---
REPORT RECEIVED. WILL CONTINUE WITH POC. PT CURRENTLY LYING SEMI FOWLERS. CALL LIGHT W/I REACH. PT IS AAO AND UP AD DORENE. RR EVEN AND UNLABORED ON RA. NS INFUSING @75ML/HR VIA L.FOR PIV. NO S/S OF DISTRESS NOTED. PT REQUESTING PAIN MEDICATION IN SPITE OF HAVING JUST RECEIVED MORPHINE. PT DENIES ANY NEEDS AT THIS TIME. WILL CTM.
[2019-07-06 07:59] VITALS: BP 108/64
[2019-07-06 10:33] LABS: CKMB 3.5 U/L (0.0-3.6); CREATINE KINASE 287 UL (21-215); POTASSIUM - SERUM 4.1 mmol/L (3.5-5.1)
[2019-07-06 11:45] VITALS: BP 117/74
[2019-07-06 11:58] VITALS: Ht 167.6 cm; Wt 44.6 kg
--- NOTE | 2019-07-06 15:04 | NUR ---
I have reviewed this patient and I concur with the Shift Assessment completed by the Licensed Practical Nurse today this shift.
[2019-07-06 15:25] VITALS: BP 104/71
[2019-07-06 18:17] LABS: CKMB 2.3 U/L (0.0-3.6); CREATINE KINASE 216 UL (21-215)
--- NOTE | 2019-07-06 19:10 | NUR ---
REPORT RECEIVED, WILL CONTINUE POC. PATIENT IS AAOX4, HIGH FOWLERS POSITION. NO S/S OF DISTRESS OBSERVED, RR EVEN AND UNLABORED ON ROOM AIR. PATIENT DENIES NEEDS AT THIS TIME. FAMILY AT BEDSIDE. CL IN REACH, BED LOCKED AND LOWERED. WILL CTM.
[2019-07-06 20:30] VITALS: BP 101/63
--- NOTE | 2019-07-06 23:03 | NUR ---
PATIENT MEDICATED FOR PAIN AT THIS TIME. FRESH ICE WATER ADMINISTERED WELL.
[2019-07-07 00:31] VITALS: BP 113/78
--- NOTE | 2019-07-07 03:15 | NUR ---
I have reviewed this patient and I concur with the Shift Assessment completed by the Licensed Practical Nurse today this shift.
--- NOTE | 2019-07-07 03:44 | NUR ---
PATIENT MEDICATED FOR PAIN.
[2019-07-07 04:31] VITALS: BP 104/66
[2019-07-07 05:14] LABS: BASOPHILS 0.4 % (0-2); EOSINOPHILS 2.3 % (0-7); HEMATOCRIT 37.2 % (36.0-48.0); HEMOGLOBIN 11.7 g/dL (12-16); IMMATURE GRANULOCYTES 0.2 % (0-5); LYMPHOCYTES 42.5 % (15-50); MCH 29.1 pg (26.0-34.0); MCHC 31.5 g/dL (31.0-37.0); MCV 92.5 fL (80.0-100.0); MONOCYTES 8.5 % (2-11); NEUTROPHILS 46.1 % (40-80); PLATELET COUNT 224 10x3/uL (130-400); RBC 4.02 10x6/uL (4.00-5.40); RDW 14.3 % (11.5-14.5); WBC 5.2 10x3/uL (4.8-10.8)
[2019-07-07 05:25] LABS: CALC OSMOLALITY 275 mosm/kg (275-300); CALCIUM 8.6 mg/dL (8.5-10.1); CARBON DIOXIDE 27.4 mmol/L (21.0-32.0); CHLORIDE - SERUM 106 mmol/L (98-107); CREATININE - SERUM 0.7 mg/dL (0.6-1.3); GLUCOSE 96 mg/dL (74-106); MAGNESIUM - SERUM 1.5 mg/dL (1.8-2.4); PHOSPHOROUS 3.6 mg/dL (2.5-4.9); POTASSIUM - SERUM 4.3 mmol/L (3.5-5.1); SODIUM 138 mmol/L (136-145); UREA NITROGEN 12 mg/dL (7-18); eGFR NON AFRICAN AMERICAN > 90 mL/min (90-120)
[2019-07-07 09:36] VITALS: BP 114/79
[2019-07-07 12:22] VITALS: BP 103/70
--- NOTE | 2019-07-07 14:54 | NUR ---
PT WORRIED ABOUT GETTING SOMETHING FOR PAIN ON DC. I STATED I WILL SPEAK WITH MD. PT VERBALIZED UNDERSTANDING. SPOKE WITH MAC CULVER AND SHE STATES PT CAN TAKE TYLENOL AT HOME FOR PAIN.
--- NOTE | 2019-07-07 15:20 | NUR ---
I have reviewed this patient and I concur with the Shift Assessment completed by the Licensed Practical Nurse today this shift.
--- NOTE | 2019-07-07 16:30 | NUR ---
PT STATES SHE DOES NOT WANT A FLU VACCINE.
--- NOTE | 2019-07-07 17:41 | NUR ---
LEFT FA 20G IV DC'D WITH CATH INTACT. TELEMETRY DC'D. DISCHARGE INSTRUCTIONS GIVEN AND EXPLAINED TO PT. PT ASKED IF THE DOCTOR GAVE HER A SCRIPT FOR PAIN MEDICATION. I STATED TO HER "NO BUT THEY SAID YOU CAN TAKE TYLENOL FOR PAIN." SHE STATES "THAT ISN'T GOING TO WORK I'LL JUST GO TO THE ER AGAIN." I STATED TO HER "I'M SORRY. DO YOU STILL HAVE HYDRCODONE AT HOME FROM YOUR LAST PRESCRIPTION YOU RECEIVED?" PT STATES "YES. CAN I TAKE THAT?" AND I STATED "YES YOU CAN." PT VERBALIZED UNDERSTANDING AND SIGNED DISCHARGE PAPERS. PT CALLED FOR A RIDE AND IS GOING TO PRESS CALL LIGHT WHEN THEY ARRIVE.
--- NOTE | 2019-07-07 18:19 | NUR ---
PT REFUSED WC. PT AMBULATED WITH DAUGHTER OUT OF HOSPITAL AND LEFT IN PERSONAL CAR.
--- NOTE | 2019-07-08 07:58 | MORECARE ---
CASE MANAGEMENT DISCHARGE SUMMARY PATIENT: FELIPE ZAVALA UNIT: [id number] ADM DATE: 07/06/19 AGE: 33 : 84 SEX: F ROOM/BED: D.2104 AUTHOR: ANNA YAP PHYSICIAN: REFERRING PHYSICIAN: JAYY WOO MD DATE OF SERVICE: 07/08/19 Discharge Plan Patient Name: FELIPE ZAVALA Facility: [facility]:[place] : 1985 Planned Disposition: Home Anticipated Discharge Date: 07/07/19 Discharge Date: 07/07/2019 Expected LOS: 1 Initial Reviewer: [email or web address] Initial Review Date: 07/08/2019 Generated: 07/08/19 8:58 am Patient Name: FELIPE ZAVALA Page [id number] at 0758 All edits/amendments must be made on the electronic document DICTATION DATE: 07/08/19757 PRESCHOOL TEACHER'S ASSISTANT: VALERIANO 07/08/19 0758 RPT#: [id number] DC DATE:07/07/19 STATUS: DIS IN [facility] [address] [place] [address] END OF REPORT
--- NOTE | 2019-07-12 17:02 | EC ---
PATIENT:FELIPE ZAVALA DATE OF SERVICE: 07/06/19 SEX: F MEDICAL RECORD: [id number] DATE OF : [birth year] LOCATION:D.M2 D.210 AGE OF PATIENT: 33 ADMISSION DATE: 07/06/19 REFERRING PHYSICIAN: INTERPRETING PHYSICIAN: ROBERT CRUZ MD ECHOCARDIOGRAM REPORT ECHO CHARGES 4 ECHO COMPLETE Date: 07/06/19 CLINICAL DIAGNOSIS: CP ECHOCARDIOGRAPHIC MEASUREMENTS (adult normal given) AC root (d.<3.7cm) 2.7 cm LV Septum d (<1.2 cm> 1.1 cm Valve Excursion 1.5 cm LV Septum (systole) 1.5 cm Left Atria (s.<4.0cm> 2.5 cm LVPW d(<1.2cm) 1.3 cm RV (d.<2.3cm) 2.7 cm LVPW (sytole) 1.6 cm LV diastole(<5.6CM) 4.8 cm MV E-F(>70mm/sec) cm LV systole 3.8 cm LVOT Diameter 1.8 cm MV exc.(>10mm) cm Est.ejection fraction (50-75%) % DOPPLER: LVIT cm/sec A 62.0 cm/sec E 94.0 cm/sec LA cm/sec RVSP 24.8 mmHg LVOT 111 cm/sec AOP1/2T m/s Asc. Ao 136 cm/sec RVOT 64.0 cm/sec RA cm/sec PA 101 cm/sec AV Gradient Peak 7.4 mmHg AV Mean 3.5 mmHg AV Area 1.8 cm MV Gradient Peak 4.7 mmHg MV Mean 1.9 mmHg MV Area cm COMMENTS: Underwear Cutter: Fadia ORDONEZ Propeller Engineer: 1 Dr. Cruz TAPE# PACS Pericardial Effusion N DATE OF SERVICE: 07/06/2019 FINDINGS: 1. Left ventricular chamber size is within normal limits. Left ventricular systolic function is normal. Overall ejection fraction estimated at 55%. 2. Left atrium, right atrium, and right ventricular chamber sizes are within normal limits. 3. Valvular structures have normal structure and motion. 4. Doppler interrogation reveals no significant valvular insufficiency or stenosis. Pulmonary systolic pressure estimated at 25 mmHg. ECHOCARDIOGRAM REPORT [id number] FELIPE ZAVALA 5. No evidence of pericardial effusion or left ventricular thrombus. TRANSINT:[id number] Voice Confirmation ID: [id number] DOCUMENT ID: [id number] ROBERT CRUZ MD at 1702 CC: [id number] DICTATION DATE: 07/06/19 1549 ONLINE MARKETING SPECIALIST: 07/06/19 1744 DIS IN 07/07/19 [facility] [address] [place] [id number]
--- NOTE | 2019-07-12 17:02 | CN ---
PATIENT NAME:FELIPE LOERA MEDICAL RECORD: [id number] : 83 LOCATION:D.M2 D.2104 ADMIT DATE: 07/06/19 ACCOUNT: [id number] CONSULTING PHYSICIAN: ROBERT CALLE MD REFERRING PHYSICIAN: JAYY WOO MD DATE OF CONSULTATION: 07/06/2019 ADMITTING DIAGNOSES: 1. Atypical chest pain. 2. Shortness of breath. 3. Hypertension. 4. Previous tobacco use. HISTORY OF PRESENT ILLNESS: Mrs. Loera is a 33-year-old female with no previous cardiac history, who for the past 3 months, has been having episodes of chest pain, very atypical. If she moves it feels like a sharp stabbing pain in the middle of her chest. It is definitely positional. She has had mild shortness of breath as well. This has been going on for longer than 3 months. She has many other complaints such as generalized fatigue and weakness. Her EKG is normal. Troponin is normal. PHYSICAL EXAMINATION: CONSTITUTIONAL/GENERAL APPEARANCE: Well nourished, well developed, appears stated age. EYES: Lids and conjunctivae noninjected. No discharge. No pallor. ENT: Lips within normal limit. No cyanosis. No pallor. NECK: Carotid arteries, bilateral normal upstroke. No bruits. No thrills. No jugular venous pressure or distention. CERVICAL LYMPH NODES: Nontender. Nonenlarged. THYROID: Not enlarged. No nodules. CARDIOVASCULAR: Precordial exam, nondisplaced. No heaves or pericardial thrills. Rate and rhythm, regular. Heart sounds, normal S1, normal S2. No S3, no gallop, no rub. Systolic murmur, not heard. Diastolic murmur, not heard. RESPIRATORY: Respiratory effort, unlabored. Normal curvature. No thoracic deformity. No chest wall tenderness. Percussion, resonant. Auscultation, clear. No wheezes, no rales, no rhonchi. ABDOMEN: Soft, nondistended, nontender. No abdominal pain, no vomiting and normal appetite. MUSCULOSKELETAL: No joint tenderness, normal gait, normal tone. SKIN: Warm and dry. OVERALL IMPRESSION: Chest pain, very atypical. This is not cardiac in nature. At this time, the only thing we will get is an echocardiogram due to the shortness of breath to rule out any structural cardiac abnormalities or cardiomyopathy. This chest pain is most likely musculoskeletal in nature. TRANSINT:[id number] Voice Confirmation ID: [id number] DOCUMENT ID: [id number] CONSULT REPORT [id number] FELIPE LOERA JEFFREY MD at 1702 CC: [id number] DICTATION DATE: 07/06/19 1159 SAIL LAY OUT WORKER: 07/06/19 1206 DIS IN 07/07/19 [id number] [place] [address]
== END 2019-07-07 18:20 | disposition home or self-care (01) ==
LOC: D.ER 22:05 → D.M2 07-06 00:27 → OBSVTIME 07-06 00:27 → D.M2 07-07 18:20
PROVIDERS: Family Medicine; ADMIT Family Medicine Adult Medicine; ATTEND Family Medicine Adult Medicine
DX: R07.89 Other chest pain (principal); I10 Essential (primary) hypertension; Z87.891 Personal history of nicotine dependence

== ENCOUNTER 2019-07-23 05:20 | Day surgery (SDC) | payer MEDICAID ==
[2019-07-21 08:34] LABS: BASOPHILS 0.6 % (0-2); EOSINOPHILS 3.4 % (0-7); HEMATOCRIT 41.5 % (36.0-48.0); HEMOGLOBIN 13.4 g/dL (12-16); IMMATURE GRANULOCYTES 0.2 % (0-5); LYMPHOCYTES 38.1 % (15-50); MCH 29.3 pg (26.0-34.0); MCHC 32.3 g/dL (31.0-37.0); MCV 90.6 fL (80.0-100.0); MEAN PLATELET VOLUME 10.4 fL (7.4-10.4); MONOCYTES 8.2 % (2-11); NEUTROPHILS 49.5 % (40-80); PLATELET COUNT 246 10x3/uL (130-400); RBC 4.58 10x6/uL (4.00-5.40); RDW 13.8 % (11.5-14.5)
[~2019-07-23] VITALS: Ht 167.6 cm; Wt 97.5 kg
--- NOTE | ~2019-07-23 | OP ---
PATIENT NAME: FELIPE ZAVALA MEDICAL RECORD: [id number] :83 LOCATION:[facility] ADMISSION DATE: SURGEON: GRACIELA PATRICK MD DATE OF OPERATION: 07/23/2019 PREOPERATIVE DIAGNOSES: 1. Left ovarian cyst. 2. Pelvic pain. POSTOPERATIVE DIAGNOSES: 1. Left ovarian cyst. 2. Pelvic pain. 3. Endometriosis. PROCEDURE: Operative laparoscopy and left ovarian cystectomy. Lysis of adhesions by Dr. Ramos. SURGEON: Graciela Patrick MD ESTIMATED BLOOD LOSS: Minimal. INTRAVENOUS FLUIDS: Per anesthesia record. ANESTHESIA: General endotracheal. SPECIMENS: Included portion of left ovarian cyst. FINDINGS: 1. Endometriosis noted on the surface of the anterior peritoneum and adjacent to the adnexa. 2. Left simple ovarian cyst approximately 6-7 cm in size. 3. Otherwise normal-appearing uterus. 4. Dense adhesions of the small bowel densely adherent to the previous laparotomy scar incision. DESCRIPTION OF PROCEDURE: The patient taken to the operating room where general anesthesia was achieved without any difficulty. The patient was then prepped and draped in a normal sterile fashion in the dorsal lithotomy position. SCDs were on and functioning normally. The bladder was drained of approximately 200 cc of clear yellow urine. A sponge stick was then placed in the vagina for uterine elevation. At this point, after prep and drape, a 5-mm incision was made infraumbilically and the 5-mm bladeless trocar was used to enter the intraperitoneal space under direct visualization of the laparoscope. The patient was insufflated. Opening pressure was found to be less than 8 mmHg. Following insufflation, the introducer was removed and intraperitoneal placement was confirmed by the laparoscope. A second port site was then placed in the left lower quadrant. A 5-mm skin incision was made and a second 5-mm bladeless trocar was placed under direct visualization of the laparoscope. Dense adhesions of the small bowel were noted in the previous laparotomy site. Dr. Ramos from general surgeon joined the case and took down the bowel adhesions without any difficulty. Attention was then turned to the right lower quadrant, where a third 5-mm incision was made and a third 5-mm bladeless trocar was then used to enter the intraperitoneal space under direct visualization of the laparoscope. Survey of the abdomen and pelvis was performed. The left ovarian cyst was identified. The cyst was drained using the Bovie cautery to open a OPERATIVE REPORT [id number] FELIPE ZAVALA and the teacher industrial arts aspirator was used to drain clear fluid. The cyst wall was then elevated and the Thunderbeat device was then used to excise the majority of the ovarian cyst. The ovarian cyst was then removed from the 5-mm port. Good hemostasis was noted from the operative site. Multiple areas of peritoneal endometriosis were noted at that time. The patient was then desufflated and no bleeding was noted from any of the port or operative sites. Counts were correct times 2, and the incision sites were then repaired with 3-0 Vicryl in an interrupted fashion. Sponge stick was removed from the vagina. The patient tolerated the procedure well, transferred to postanesthesia recovery stable. TRANSINT:[id number] Voice Confirmation ID: [id number] DOCUMENT ID: [id number] GRACIELA PATRICK MD CC: [id number] DICTATION DATE: 08/12/19629 OUTBOARD MOTOR TESTER: 08/12/1939 [facility] 07/23/19 [id number] [place] [address]
[2019-07-23 07:01] VITALS: BP 103/69; Ht 167.6 cm; Wt 97.5 kg
[2019-07-23 07:13] LABS: HCG URINE NEGATIVE (NEGATIVE)
--- NOTE | 2019-07-23 10:04 | NUR ---
0954-REC'D FROM RR. DROWSY, EASILY AROUSED BY VERBAL STIMULI. VSS. REPORTS PAIN 4/10 TO SURGICAL AREA. 3 BANDAIDS TO ABD CDI. BRO IN PLACE DRAINING CLEAR YELLOW URINE BY GRAVITY. 02 2 L/NC. WATER AT BEDSIDE, CL IN EASY REACH.
--- NOTE | 2019-07-23 13:24 | NUR ---
1021-FULL LIQUID TRAY TO ROOM.
--- NOTE | 2019-07-23 13:25 | NUR ---
1048-ADMINISTERED NORCO 5/325MG 1 BY MOUTH FOR PAIN. VSS. DRESSINGS CDI..VSS.
--- NOTE | 2019-07-23 13:29 | NUR ---
1120-DISCHARGE CRITERIA MET. REMOVED IV WITH CATH INTACT,DISPOSED INTO SHARPS,COVERED WITH BANDAID. REVIEWED POST OPERATIVE INSTRUCTIONS. VERBALIZED UNDERSTANDING. VSS. BANDAIDS TO ABD CDI.PAIN 11/25. CL IN EASY REACH
--- NOTE | 2019-07-23 13:31 | NUR ---
1130-PT DRESSED AND RIDE HERE. ESCORTED OUT VIA W/C WITH SPOUSE AWAITING TO DRIVE HOME. DISCHARGE PAPERWORK IN HAND
== END 2019-07-23 12:00 | disposition home or self-care (01) ==
LOC: D.OPS 05:20 → D.PAN 07:30 → D.OPS 08:30
PROVIDERS: ATTEND Obstetrics & Gynecology
DX: N83.202 Unspecified ovarian cyst, left side (principal); R10.2 Pelvic and perineal pain; N80.9 Endometriosis, unspecified; E07.9 Disorder of thyroid, unspecified; D64.9 Anemia, unspecified

== ENCOUNTER 2019-10-26 01:09 | Emergency (ER) | payer OTHER ==
[~2019-10-26] VITALS: Ht 167.6 cm; Wt 93.2 kg
[2019-10-26 01:20] VITALS: Ht 167.6 cm; Wt 93.2 kg
[2019-10-26 01:50] LABS: BACTERIA NONE SEEN /hpf (NEGATIVE); EPITHELIAL CELLS 0-5 /hpf (0-5); HCG URINE NEGATIVE (NEGATIVE)
[2019-10-26 02:56] LABS: BASOPHILS 0.2 % (0-2); EOSINOPHILS 1.5 % (0-7); HEMOGLOBIN 13.4 g/dL (12-16); IMMATURE GRANULOCYTES 0.1 % (0-5); LYMPHOCYTES 30.6 % (15-50); MCH 29.5 pg (26.0-34.0); MCHC 33.5 g/dL (31.0-37.0); MCV 87.9 fL (80.0-100.0); MEAN PLATELET VOLUME 10.6 fL (7.4-10.4); MONOCYTES 6.1 % (2-11); NEUTROPHILS 61.5 % (40-80); PLATELET COUNT 258 10x3/uL (130-400); RBC 4.55 10x6/uL (4.00-5.40); RDW 13.9 % (11.5-14.5); WBC 8.2 10x3/uL (4.8-10.8)
[2019-10-26 03:04] LABS: CALC OSMOLALITY 279 mosm/kg (275-300); CALCIUM 8.9 mg/dL (8.5-10.1); CARBON DIOXIDE 26.1 mmol/L (21.0-32.0); CHLORIDE - SERUM 102 mmol/L (98-107); CREATININE - SERUM 0.8 mg/dL (0.6-1.3); GLUCOSE 126 mg/dL (74-106); POTASSIUM - SERUM 3.8 mmol/L (3.5-5.1); SODIUM 138 mmol/L (136-145); UREA NITROGEN 19 mg/dL (7-18); eGFR NON AFRICAN AMERICAN 86 mL/min (90-120)
[2019-10-26 03:10] LABS: ALBUMIN 3.9 g/dL (3.4-5.0); ALKALINE PHOSPHATASE 86 U/L (30-120); ALT (SGPT) 25 U/L (10-68); BILIRUBIN - TOTAL 0.35 mg/dL (0.2-1.3); PROTEIN - SERUM 7.7 g/dL (6.4-8.2)
[2019-10-26] MEDS ORDERED: MACROBID100 MG PO (05:10)
[2019-10-26 05:28] VITALS: BP 108/62
== END 2019-10-26 05:28 | disposition home or self-care (01) ==
LOC: D.ER 01:09
PROVIDERS: Family Medicine
DX: N39.0 Urinary tract infection, site not specified (principal); I10 Essential (primary) hypertension; Z72.0 Tobacco use

== ENCOUNTER 2020-12-01 20:10 | Emergency (ER) | payer OTHER ==
[~2020-12-01] VITALS: Ht 167.6 cm; Wt 90.0 kg
[~2020-12-01 20:10] MED LIST changes: +KEFLEX500 MG PO; +MACROBID100 MG PO; +OMNICEF300 MG PO; +PHENERGAN25 M1 PO
[2020-12-01 20:19] VITALS: Ht 167.6 cm; Wt 90.0 kg
[2020-12-01 22:30] VITALS: BP 100/64
== END 2020-12-01 22:30 | disposition home or self-care (01) ==
LOC: D.ER 20:10
DX: O16.2 Unspecified maternal hypertension, second trimester (principal); Z3A.16 16 weeks gestation of pregnancy; R42 Dizziness and giddiness; G43.909 Migraine, unspecified, not intractable, without status migrainosus

== ENCOUNTER 2021-01-23 14:55 | Emergency (ER) | payer OTHER ==
[~2021-01-23] VITALS: Ht 167.6 cm; Wt 93.2 kg
[2021-01-23 15:09] VITALS: BP 95/63; Ht 167.6 cm; Wt 93.2 kg
== END 2021-01-23 17:04 | disposition home or self-care (01) ==
LOC: D.ER 14:55
DX: O16.2 Unspecified maternal hypertension, second trimester (principal); S93.401A Sprain of unspecified ligament of right ankle, initial encounter; W19.XXXA Unspecified fall, initial encounter; Y93.9 Activity, unspecified; Y92.9 Unspecified place or not applicable; Z3A.22 22 weeks gestation of pregnancy